=== PATIENT | female | born 1970 | race Caucasian/White ===

== ENCOUNTER 2017-05-02 14:40 | Emergency (ER) | payer BC ==
[~2017-05-02] VITALS: Ht 157.5 cm; Wt 105.7 kg
[~2017-05-02 14:40] MED LIST: PERCOCET 5/31 TABLET PO
[2017-05-02 18:11] LABS: HEMATOCRIT 40.4 % (36.0-46.0); MCH 28.4 PG (29.0-34.0); MCHC 33.4 G/DL (30.0-36.0); MCV 85.1 FL (83-99); MEAN PLAT.VOLUME 10.3 uM^3 (9.5-12.4); PLATELET COUNT 285 K/uL (156-360); RBC DIS.WIDTH-CV 12.7 % (11.8-14.6); RBC DIS.WIDTH-SD 39.1 % (39-53); RED BLOOD COUNT 4.75 M/uL (3.80-5.20); WHITE BLOOD COUNT 17.6 K/uL (4.1-10.2)
[2017-05-02 18:51] LABS: GLUCOSE 102 mg/dL (70-99)
[2017-05-02 18:54] LABS: ALKALINE PHOSPHATASE 111 IU/L (3-129); GFR ESTIMATE (CALCULATED) > 59 mL/min/
[2017-05-02 18:55] LABS: UREA NITROGEN (BUN) 13 mg/dL (9-23)
[2017-05-02 19:06] LABS: QUANTITATIVE HCG < 4.0 MIU/ML
[2017-05-02 19:31] LABS: CHLORIDE 103 mEq/L (99-109); POTASSIUM 4.1 mEq/L (3.7-5.4); SODIUM 136 mEq/L (136-147)
[2017-05-02 19:34] LABS: ANION GAP 12 MEQ/L (2-14)
[2017-05-02 19:35] LABS: TOTAL BILIRUBIN 0.5 mg/dL (0.0-1.0)
[2017-05-02] MEDS ORDERED: LORTAB 5-325 M1 EACH PO (22:28)
[2017-05-02 23:18] VITALS: BP 130/70
== END 2017-05-02 23:20 | disposition home or self-care (01) ==
LOC: EME 14:40
PROVIDERS: Emergency Medicine
DX: S52.501A Unspecified fracture of the lower end of right radius, initial encounter for closed fracture (principal); S52.611A Displaced fracture of right ulna styloid process, initial encounter for closed fracture; S52.042A Displaced fracture of coronoid process of left ulna, initial encounter for closed fracture; S52.122A Displaced fracture of head of left radius, initial encounter for closed fracture; S01.511A Laceration without foreign body of lip, initial encounter; W10.9XXA Fall (on) (from) unspecified stairs and steps, initial encounter; I10 Essential (primary) hypertension
CPT/HCPCS: 73080; 73100; 73110; 73200; 80053; 84702; 85027; 99281; 99285; J3010; J7030

== ENCOUNTER → 2017-05-07 | Outpatient (CLI) | payer BC ==
[~2017-05-07] MED LIST changes: +LORTAB 5-325 M1 EACH PO
== END | disposition home or self-care (01) ==
LOC: CDC 11:52
DX: M25.531 Pain in right wrist (principal)
CPT/HCPCS: 93000